=== PATIENT | male | born 1955 | race Asian ===

== ENCOUNTER 2020-12-08 08:30 | Outpatient (CLI) | payer OTHER | END 2020-12-08 20:54 | disposition home or self-care (01) | LOC: NM 08:30 | PROVIDERS: ATTEND Internal Medicine | DX: R94.5 Abnormal results of liver function studies (principal); K85.90 Acute pancreatitis without necrosis or infection, unspecified; R10.9 Unspecified abdominal pain | CPT/HCPCS: A9537 ==

== ENCOUNTER 2021-08-19 09:02 | Outpatient (CLI) | payer OTHER | END 2021-08-19 19:09 | disposition home or self-care (01) | LOC: RAD 09:02 | PROVIDERS: ATTEND Nurse Practitioner Family | DX: R13.19 Other dysphagia (principal) ==